=== PATIENT | male | born 1975 | race Caucasian/White ===

== ENCOUNTER 2019-07-22 19:24 | Emergency (ER) | payer OTHER ==
[~2019-07-22] VITALS: Ht 182.8 cm; Wt 104.3 kg
[2019-07-22] MEDS ORDERED: Motrin,Rufen800 MG PO (21:37)
[2019-07-22] MEDS ORDERED: CYCLOBENZAPRINE5 M3 PO (21:37)
== END 2019-07-22 21:50 | disposition home or self-care (01) ==
LOC: ED 19:24
DX: S39.012A Strain of muscle, fascia and tendon of lower back, initial encounter (principal); S86.912A Strain of unspecified muscle(s) and tendon(s) at lower leg level, left leg, initial encounter; S46.911A Strain of unspecified muscle, fascia and tendon at shoulder and upper arm level, right arm, initial encounter; S96.912A Strain of unspecified muscle and tendon at ankle and foot level, left foot, initial encounter; F17.200 Nicotine dependence, unspecified, uncomplicated; V09.9XXA Pedestrian injured in unspecified transport accident, initial encounter; Y93.89 Activity, other specified; Y92.410 Unspecified street and highway as the place of occurrence of the external cause; Y99.8 Other external cause status

== ENCOUNTER 2020-02-03 10:27 | Emergency (ER) | payer OTHER ==
[~2020-02-03] VITALS: Ht 182.8 cm; Wt 113.4 kg
[~2020-02-03 10:27] MED LIST: CYCLOBENZAPRINE5 M3 PO; Motrin,Rufen800 MG PO
[2020-02-03] MEDS ORDERED: KEFLEX500 M1 PO ×2 (10:57→10:59)
== END 2020-02-03 11:05 | disposition home or self-care (01) ==
LOC: ED 10:27
DX: T24.232A Burn of second degree of left lower leg, initial encounter (principal); Z79.899 Other long term (current) drug therapy; X08.8XXA Exposure to other specified smoke, fire and flames, initial encounter; Y93.89 Activity, other specified; Y92.89 Other specified places as the place of occurrence of the external cause; Y99.8 Other external cause status

== ENCOUNTER 2020-05-22 20:56 | Emergency (ER) | payer OTHER ==
[~2020-05-22] VITALS: Ht 182.8 cm; Wt 111.1 kg
[~2020-05-22 20:56] MED LIST changes: +KEFLEX500 M1 PO
[2020-05-22] MEDS ORDERED: IBU800 MG PO (21:44)
== END 2020-05-22 22:25 | disposition home or self-care (01) ==
LOC: ED 20:56
DX: S82.62XA Displaced fracture of lateral malleolus of left fibula, initial encounter for closed fracture (principal); W22.8XXA Striking against or struck by other objects, initial encounter; Y93.89 Activity, other specified; Y92.89 Other specified places as the place of occurrence of the external cause; Y99.8 Other external cause status